=== PATIENT | female | born 1950 | race Caucasian/White ===

== ENCOUNTER 2018-08-13 00:34 | Outpatient (CLI) | payer MEDICARE, SELFPAY ==
--- NOTE | 2018-08-13 15:13 | DI.MAMMO_ITS ---
SYMPTOM/DIAGNOSIS: SCREENING. MAMMOGRAM: Mammograms were interpreted according to the usual protocol including computer analysis with CAD system, tomosynthesis and C view imaging. The breast tissue is of moderate radiodensity. There is no mass. There are no suspicious calcifications. There has been no significant interval change when compared with prior images. SUMMARY: No evidence of malignancy. Category 1, yearly screening mammography is recommended. Category B, breast density MQSA ASSESSMENT OF FINDINGS: Negative. Category 1. Patient will receive a letter notifying them of these results. BI-RADS category B. There are scattered areas of fibroglandular density.
== END 2018-08-13 00:54 ==
PROVIDERS: PCP Family Medicine; Visit Provider Family Medicine
DX: Z12.31 Encounter for screening mammogram for malignant neoplasm of breast (principal)
CPT/HCPCS: 77063; 77067

== ENCOUNTER 2018-08-28 16:24 | Outpatient (REF) | payer MEDICARE, SELFPAY ==
--- NOTE | 2018-08-28 16:00 | SKI_PTH ---
PATIENT: EMILIE SEALS LOC: [facility] U#:[id number] AGE/SX: 67/F ROOM: RE08/28/[address]: Inocente Chacon MD : 1950 BED: DIS: 08/28/2018 SPEC #: [id number] RECD: 08/29/18 12:46 STATUS: DOROTHY REQ #: [id number] FERMIN: 08/28/18 16:[address]: Inocente Chacon DEPT: Surgical Specimen RECD BY: Keara Smith ENTERED: 08/29/18 12:47 SP TYPE: DELANEY CLARK DR: Sonya Dodge MD Tissues: 1 - SKIN BIOPSY(SHAVE/PUNCH) Procedures: SKIN LEVEL 4 Comments:
== END 2018-08-28 16:44 ==
LOC: LBN 16:24
PROVIDERS: PCP Family Medicine; Visit Provider Family Medicine
DX: C44.629 Squamous cell carcinoma of skin of left upper limb, including shoulder (principal)
CPT/HCPCS: 88305

== ENCOUNTER → 2018-09-15 14:15 | Outpatient (BNVA) | payer MEDICARE, SELFPAY | PROVIDERS: PCP Family Medicine; Referring Provider Family Medicine; Visit Provider Surgery | DX: C44.92 Squamous cell carcinoma of skin, unspecified (principal) | CPT/HCPCS: 99203; 99213 ==

== ENCOUNTER 2018-10-02 08:02 | Day surgery (SDC) | payer MEDICARE, OTHER, SELFPAY ==
[2018-10-02 08:17] VITALS: BP 115/71; PULSE 81; RESP 15; TEMP 35.6; O2SAT 96
[2018-10-02] MEDS: Lactated Ringers 1,000 ML 80 ML IV (08:38)
--- NOTE | 2018-10-02 10:41 | PDOC.DSDIS_ITS ---
Discharge Plan Disposition Patient Disposition: HOME Condition: Good Discharge Details Reason For Visit: Excision left forearm skin cancer Attending Provider: Savanna Saleh Primary Care Provider: Sonya Dodge Home Meds and New Rx's Prescriptions: Continued citalopram 20 mg tablet 30 mg PO DAILY Qty: 45 RF: 5 albuterol sulfate [ProAir HFA] 90 mcg/actuation HFA aerosol inhaler 1 puff IH QID PRN (Reason: bronchospasm) Qty: 6.7 RF: 3 fexofenadine 180 mg tablet 180 mg PO DAILY PRNRF: 0 triamcinolone acetonide 15 GM cream 1 edna Topical BID PRNQty: 3 RF: 3 multivitamin [Daily Multi-Vitamin] 1 EACH tablet 1 ea PO DAILY RF: 0 calcium carbonate-vitamin D3 [Calcium 500 + D] 1 EACH tablet 1 ea PO BID PRN Qty: 30 RF: 0 acetaminophen [Acetaminophen Pain Relief] 500 mg Tablet 1,000 mg PO PRN PRNRF: 0 Discharge Instructions Additional Instructions: May remove dressing tomorrow, keep incision covered as needed. Call for any concerns with infection or bleeding. Stand Alone Forms: [facility] Post op Instructions, Viraj Richards ([facility]) Referrals: Savanna Saleh MD [ [facility] STAFF PHYSICIAN] - (10-14 days with Sweetie Schneider for suture removal) Activity:: Activity as Tolerated Remove Dressings/Wound Care:: 24 hours Shower/Bathe:: 24 hours Diet:: As Tolerated Discharge Orders Discharge Orders: Discharge Order (Routine); Ordered 10/02/18 Ordered By: Savanna Saleh DS: Diagnosis Discharge Diagnosis (1) SCC (squamous cell carcinoma): Start date: 10/02/18 Start time: 11:18 Status: Acute
[2018-10-02] MEDS: Lidocaine 1% Multi-Dose 50 ML VIAL (10:50)
--- NOTE | 2018-10-02 11:00 | SKI_PTH ---
PATIENT: EMILIE SEALS LOC: [facility] U#:[id number] AGE/SX: 67/F ROOM: RE10/02/[address]: Savanna Saleh MD : 1950 BED: DIS: 10/02/2018 SPEC #: [id number] RECD: 10/02/18 13:02 STATUS: DOROTHY RELynette #: [id number] FERMIN: 10/02/18 11:[address]: Savanna Saleh DEPT: Surgical Specimen RECD BY: Keara Smith ENTERED: 10/02/18 13:03 SP TYPE: DELANEY CLARK DR: Sonya Dodge MD Tissues: 1 - SKIN BIOPSY(SHAVE/PUNCH) Procedures: SKIN LEVEL 4 Comments: [id number]
[2018-10-02 12:00] VITALS: BP 100/63; PULSE 66; RESP 18; TEMP 36.2; O2SAT 97
--- NOTE | 2018-10-03 10:19 | ROE_ITS ---
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 POSTOPERATIVE DIAGNOSIS: Same. PROCEDURE: 1. Wide excision left forearm squamous cell cancer. 2. Intermediate closure. SURGEON: Savanna Saleh M.D. ANESTHESIA: Local and sedation. INDICATIONS: This is a 57-year-old woman with a biopsy-proven squamous cell skin cancer of her left forearm. She presents for wide excision. PROCEDURE: She was placed on the operating table and her lateral left lower arm was prepped and draped sterilely. The skin surrounding the lesion was infiltrated with local anesthetic. The lesion itself measured 5 mm. 5 mm margins were marked on either side of the lesion and an elliptical incision made after injecting local anesthetic. The incision was carried down to subcutaneous tissue. The skin ellipse was then removed with cautery in the subcutaneous tissues and sent to Pathology. The skin edges were undermined with cautery and the deep dermis reapproximated with interrupted buried #3-0 Monocryl sutures. The skin was then reapproximated with interrupted #5-0 Prolene sutures. The total incision length was 3 cm and excision diameter was approximately 1.5 cm. The wound was dressed sterilely. She tolerated the procedure well and was stable to recovery. cc: Sonya Dodge M.D.
== END 2018-10-02 12:10 | disposition home or self-care (01) ==
PROVIDERS: PCP Family Medicine; Visit Provider Surgery
PROC: (CPT 11402; principal; 2018-10-02 09:00)
DX: L90.5 Scar conditions and fibrosis of skin (principal)
CPT/HCPCS: 11402; 12031; 88305

== ENCOUNTER → 2018-10-06 15:08 | Outpatient (BNVA) | payer MEDICARE, OTHER, SELFPAY | PROVIDERS: PCP Family Medicine; Referring Provider Family Medicine; Visit Provider Surgery | DX: Z48.817 Encounter for surgical aftercare following surgery on the skin and subcutaneous tissue (principal); C44.622 Squamous cell carcinoma of skin of right upper limb, including shoulder ==

== ENCOUNTER 2018-10-09 01:29 | Outpatient (CLI) | payer MEDICARE, OTHER, SELFPAY ==
[2018-10-09 13:09] LABS: ALT 31 U/L (12-78); AST 17 U/L (15-37); Albumin 4.1 g/dL (3.4-5.0); Alkaline Phosphatase 75 U/L (46-116); Anion Gap 9.5 mmol/L (3-11); BUN 12 mg/dL (7-18); Bilirubin, Total 0.3 mg/dL (0.2-1.0); CO2 26.5 mmol/L (21.0-32.0); Calcium 9.2 mg/dL (8.5-10.1); Calculated LDL 149 mg/dL; Chloride 101 mmol/L (98-107); Cholesterol 223 mg/dL (50-200); Glucose 104 mg/dL (70-100); HDL Cholesterol 46 mg/dL (40-60); Potassium 4.4 mmol/L (3.5-5.1); Sodium 137 mmol/L (136-145); Total Protein 7.1 g/dL (6.4-8.2); Triglyceride 142 mg/dL (30-150)
== END 2018-10-09 01:49 ==
PROVIDERS: PCP Family Medicine; Visit Provider Family Medicine
DX: R74.0 Nonspecific elevation of levels of transaminase and lactic acid dehydrogenase [LDH] (principal); Z13.220 Encounter for screening for lipoid disorders; Z48.817 Encounter for surgical aftercare following surgery on the skin and subcutaneous tissue
CPT/HCPCS: 36415; 80053; 80061; 83721

== ENCOUNTER 2018-11-22 00:41 | Outpatient (CLI) | payer MEDICARE, OTHER, SELFPAY ==
[2018-11-24 09:09] LABS: HBs Antibody, Quant >1000.0 mIU/mL; Hepatitis B Surface Ab Positive
[2018-11-24 09:18] LABS: Hepatitis B Surface Ag Negative (NEGAT)
[2018-11-24 10:12] LABS: HIV-1/2 Ag & Ab Screen Negative (NEGAT)
[2018-11-24 10:13] LABS: Hepatitis C Ab w Rflx HCV PCR Reactive (NEGAT)
[2018-11-25 19:22] LABS: HCV Genotype 2 (Undetected)
== END 2018-11-22 01:01 ==
PROVIDERS: PCP Family Medicine; Visit Provider Family Medicine
DX: K75.9 Inflammatory liver disease, unspecified (principal); B19.20 Unspecified viral hepatitis C without hepatic coma
CPT/HCPCS: 36415; 86706; 86803; 87340; 87389; 86704; 87521; 87522

== ENCOUNTER 2019-10-23 04:01 | Outpatient (CLI) | payer MEDICARE, OTHER, SELFPAY ==
--- NOTE | 2019-10-23 08:00 | DI.MAMMO_ITS ---
EXAM: MAMMO SCREENING CLINICAL HISTORY: screening,Z12.39 TECHNIQUE: Mammograms were interpreted according to the usual protocol including computer analysis w [employer] CAD system, tomosynthesis and C-view imaging. COMPARISON: 2015 and 2018 FINDINGS: The breasts are composed of scattered fibroglandular densities, Breast Density category B. No suspicious masses or suspicious microcalcifications are seen. No skin thickening or abnormal axillary lymph nodes are seen. There has been no significant change from prior exams. IMPRESSION: BI-RADS Category 1, Negative mammogram Yearly screening mammography is recommended. Breast Density - Category B, scattered fibroglandular densities. A negative radiographic report should not delay biopsy if a dominant or clinically suspicious mass is present. Up to ten percent of cancers are not identified on mammography. A negative report may reinforce clinical impression. Adenosis and dense breasts may obscure an underlying neoplasm. False positive reports average 6 to 10%. Patient will receive a letter notifying them of these results.
== END 2019-10-23 04:21 ==
PROVIDERS: PCP Family Medicine; Visit Provider Family Medicine
DX: Z12.31 Encounter for screening mammogram for malignant neoplasm of breast (principal); R92.2 Inconclusive mammogram
CPT/HCPCS: 77063; 77067